=== PATIENT | male | born 1975 | race Hispanic/Latino ===

== ENCOUNTER 2017-03-07 11:04 | Emergency (ER) | payer OTHER ==
[2017-03-07] MEDS ORDERED: METHYLPREDNISOLONE SOD SUCC 125MG/2ML VIAL ONE (11:31)
[2017-03-07] MEDS ORDERED: IPRATROPIUM/ALBUTEROL SULFATE 3 ML SOLUTION IH ONE (11:32)
[2017-03-07 12:17] LABS: BASOPHILS % (AUTO) 0.6 % (0.0-5.0); EOSINOPHILS % (AUTO) 0.7 % (0.0-8.0); HEMATOCRIT 43.1 % (42-54); LYMPHOCYTES % (AUTO) 12.5 % (21.0-51.0); MEAN CORPUSCULAR HGB CONC 34.6 g/dL (32.0-36.0); MEAN CORPUSCULAR VOLUME 86.7 fL (79-99); MONOCYTES % (AUTO) 10.3 % (3.0-13.0); NEUTROPHILS % (AUTO) 75.9 % (40.0-77.0); PLATELET COUNT (AUTO) 190 K/uL (130-400); RED BLOOD CELL COUNT(AUTO) 4.97 MIL/uL (4.50-6.20); RED CELL DISTRIBUTION WIDTH 13.5 % (11.0-15.5); WHITE BLOOD COUNT (AUTO) 10.8 K/uL (4.8-10.8)
[2017-03-07 12:27] LABS: CREATININE 1.2 mg/dL (0.5-1.5)
[2017-03-07] MEDS ORDERED: CEFTRIAXONE SODIUM 1 GM ONE (13:40)
[2017-03-07] MEDS ORDERED: AZITHROMYCIN 250 MG TABLET PO ONE (13:40)
[2017-03-07] MEDS ORDERED: LIDOCAINE HCL-MPF 1% 2ML VIAL ONE (13:41)
[2017-03-07] MEDS ORDERED: ACETAMINOPHEN 325 MG TAB ONE (14:02)
== END 2017-03-07 14:05 | disposition home or self-care (01) ==
LOC: EDH 11:04
DX: J11.00 Influenza due to unidentified influenza virus with unspecified type of pneumonia (principal); R50.81 Fever presenting with conditions classified elsewhere; I10 Essential (primary) hypertension
CPT/HCPCS: 36415; 71045; 80048; 85025; 87804 ×2; 94640; 96372 ×2; 99285; J0696; J2930; J3490